=== PATIENT | female | born 1965 | race Caucasian/White ===

== ENCOUNTER 2018-05-19 21:53 | Emergency (ER) | payer OTHER ==
[~2018-05-19] VITALS: Ht 160 cm; Wt 104.3 kg
[2018-05-19] MEDS ORDERED: COLACE100 MG PO (22:14)
[2018-05-19] MEDS ORDERED: MAGNESIUM OXID200 MG PO (22:15)
[2018-05-19] MEDS ORDERED: CELEXA20 MG PO (22:15)
[2018-05-19] MEDS ORDERED: FLEXERIL PO ×2 (22:15→22:21)
[2018-05-19] MEDS ORDERED: AMITRIPTYLINE H25 M2 PO (22:15)
[2018-05-19] MEDS ORDERED: POTASSIUM20 PO (22:16)
[2018-05-19] MEDS ORDERED: METOLAZONE 2.52.5 MG PO (22:16)
[2018-05-19] MEDS ORDERED: [UNRECOGNIZED DRUG - OTHER] PO (22:17)
[2018-05-19] MEDS ORDERED: XANAX 0.5 MG0.5 MG PO ×2 (22:18→22:20)
[2018-05-19] MEDS ORDERED: APPLE CIDER VI600 MG PO (22:18)
[2018-05-19] MEDS ORDERED: ROXICODONE30 M1 PO (22:19)
[2018-05-19] MEDS ORDERED: LIPITOR80 MG PO (22:20)
[2018-05-19] MEDS ORDERED: TRIAMTERENE-HC1 EAC2 PO (22:21)
[2018-05-19] MEDS ORDERED: NAPROSYN500 MG PO (22:51)
[2018-05-19] MEDS ORDERED: NORFLEX100 MG PO (22:51)
[2018-05-19 23:25] VITALS: BP 120/71
== END 2018-05-19 23:45 | disposition home or self-care (01) ==
LOC: ER 21:53
DX: G89.29 Other chronic pain (principal); M54.42 Lumbago with sciatica, left side; E66.9 Obesity, unspecified; Z68.41 Body mass index [BMI] 40.0-44.9, adult; Z88.8 Allergy status to other drugs, medicaments and biological substances